=== PATIENT | female | born 1995 | race Caucasian/White ===

== ENCOUNTER 2018-11-21 09:15 | Emergency (ER) | payer BC ==
[~2018-11-21] VITALS: Wt 80.0 kg
[~2018-11-21 09:15] MED LIST: IBUP800T48 PO
[2018-11-21] MEDS ORDERED: IBUPROFEN 800 MG TAB PO ONE (10:00)
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
== END 2018-11-21 10:36 | disposition home or self-care (01) ==
LOC: FTE 09:15
DX: M25.562 Pain in left knee (principal)
CPT/HCPCS: 81025; 99282; Z7610